=== PATIENT | female | born 1965 | race Caucasian/White ===

== ENCOUNTER 2017-06-12 11:54 | Day surgery (SDC) | payer OTHER ==
[2017-06-09 13:38] VITALS: BMI 37.2
[2017-06-12 12:19] LABS: ADD MANUAL DIFF? NO
[2017-06-12 12:20] LABS: BASO # 0.05 K/mm3 (0.0-2.0); BASO % 1.2 % (0.0-3.0); EOS # 0.1 (0.0-0.7); EOS % 2.1 % (1.5-5.0); GRAN # 1.69 (1.4-6.5); GRAN % 39.7 % (50.0-68.0); HEMATOCRIT 37.4 % (36.0-48.0); LYMPH # 2.1 (1.2-3.4); LYMPH % 50.2 % (22.0-35.0); MEAN CELL VOLUME 80.8 fL (80.0-105.0); MEAN CORPUSCULAR HEMOGLOBIN 26.8 pg (25.0-35.0); MEAN CORPUSCULAR HGB CONC 33.2 g/dl (31.0-37.0); MONO # 0.3 (0.1-0.6); MONO % 6.8 % (1.0-6.0); PLATELET COUNT 259 10^3/uL (120.0-450.0); RED CELL DISTRIBUTION WIDTH 13.6 % (11.5-14.5); WHITE BLOOD COUNT 4.3 10^3/ul (4.5-11.0)
[2017-06-12 12:30] LABS: BLOOD UREA NITROGEN 19 mg/dL (7-21); CALCIUM 9.9 mg/dL (8.4-10.5); CARBON DIOXIDE 27 mmol/L (21-33); CHLORIDE 102 mmol/L (98-107); GFR AFRICAN-AMERICAN > 60; GLUCOSE,RANDOM 97 mg/dL (70-110); POTASSIUM 4.6 mmol/L (3.6-5.0); SODIUM 139 mmol/L (132-148)
[2017-06-12 12:32] LABS: INR 0.97 (0.93-1.08); PARTIAL THROMBOPLASTIN TIME 27.8 Seconds (23.7-30.8)
--- NOTE | 2017-06-12 12:39 | CP.SDSHP ---
Same Day Surgery H & P - History Proposed Procedure: thyroid Bx. Pre-Op Diagnosis: thyroid nodule. - Previous Medical/Surgical History Cardiac: Hypertension Endocrine/Metabolic: Thyroid Disease, Diabetes, Obesity Neuro: Headaches Misc: Other (hx of .) Previous Surgical History: . - Allergies Allergies: Allergies No Known Allergies Allergy (Verified 06/09/17 13:37) - Physical Exam General Appearance: WNL. Mental Status: Alert & Oriented x3 Neuro: WNL Heart: WNL Lungs: WNL GI: WNL - {Optional Preform as Required} Other Pertinent Findings: hyperlipidemia. - Impression Impression: thyroid nodule.recent syncopal episode. - Date & Time Date: 06/12/17 Time: 12:39 Short Stay Discharge - Short Stay Discharge Admitting Diagnosis/Reason for Visit: THYROID NODULE E04.9 Disposition: HOME/ ROUTINE
[2017-06-12] MEDS ORDERED: Midazolam 2 MG/2 ML VIAL ONE ×2 (14:17→15:09)
[2017-06-12] MEDS ORDERED: Oxycodone/Acetaminophen 5/325 mg Tab PO PRN (15:23)
[2017-06-12] MEDS ORDERED: Sodium Chloride 0.45% 1,000 ML IV SCH (15:30)
[2017-06-12 15:40] VITALS: TEMP 98
[2017-06-12 15:50] VITALS: PULSE 65
[2017-06-12 16:23] VITALS: BP 116/76; RESP 20; O2SAT 96
--- NOTE | 2017-06-12 19:45 | US ---
PROCEDURE: Ultrasound-guided right thyroid fine needle aspiration biopsy. CLINICAL HISTORY: Dominant 1.6 cm right thyroid nodule. Evaluate for malignancy. PHYSICIAN(S): Stanley Carvalho M.D. TECHNIQUE: The relative risks and indications for the procedure were explained to the patient and consent obtained. The patient was placed supine on the stretcher with the neck extended and preliminary sonography of the thyroid performed. The thyroid is small and heterogeneous in echotexture, consistent with a chronic thyroiditis. There is a 1.6 cm hypoechoic nodule in the right thyroid The neck was prepped and draped in the usual sterile fashion. Conscious sedation and monitoring were provided throughout the procedure by a nurse. 1% Xylocaine was used to anesthetize the skin and soft tissues at the access site. Three passes with a 22-gauge needle were performed under ultrasound guidance for fine needle aspiration of the 1.6 cm hypoechoic nodule in the right thyroid. The slides were reviewed by pathology and deemed adequate. The patient tolerated the procedure well. IMPRESSION: 1. Ultrasound guided fine needle aspiration of a 1.6 cm hypoechoicnodule in the right thyroid.
== END 2017-06-12 17:15 | disposition home or self-care (01) ==
LOC: SDS 11:54
PROVIDERS: ATTEND Radiology Vascular & Interventional Radiology
DX: C73 Malignant neoplasm of thyroid gland (principal); I10 Essential (primary) hypertension; E11.9 Type 2 diabetes mellitus without complications; E66.9 Obesity, unspecified; R51 Headache; E78.5 Hyperlipidemia, unspecified; R55 Syncope and collapse; Z68.37 Body mass index [BMI] 37.0-37.9, adult
CPT/HCPCS: 10022; 36415; 80048; 85025; 85610; 85730; 88173; 88305; J2250; J2405; J3010; J7030; J7040

== ENCOUNTER 2018-03-09 12:30 | Observation (INO) | payer OTHER ==
[2018-03-09 12:39] VITALS: BMI 40.0
--- NOTE | 2018-03-09 13:02 | ED PDOC ---
Arrival/HPI - General Time Seen by Provider: 03/09/18 12:32 Historian: Patient - History of Present Illness Narrative History of Present Illness (Text): 03/09/18 13:01 Cortes Guevara is a 53 year old female, whose past medical history includes hypertension, who presents to the emergency department complaining of dizziness and chest pain for one hour. Patient states that she experiences associated right-sided numbness. Patient is a poor historian. No other complaints offered at this time. Time/Duration: 1 hour Symptom Onset: Gradual Symptom Course: Unchanged Activities at Onset: Light Context: Home Past Medical History - Provider Review Nursing Documentation Reviewed: Yes - Cardiac Hx Pacemaker: No - Hematological/Oncological Hx Blood Transfusions: No - Musculoskeletal/Rheumatological Hx Musculoskeletal Disorders: No - Psychiatric Hx Substance Use: No - Anesthesia Hx Anesthesia Reactions: No Hx Malignant Hyperthermia: No Family/Social History - Physician Review Nursing Documentation Reviewed: Yes Family/Social History: No Known Family HX Hx Alcohol Use: No Hx Substance Use: No Allergies/Home Meds Allergies/Adverse Reactions: Allergies Penicillins Allergy (Verified 03/09/18 13:07) SHORTNESS OF BREATH OR ITCHING? PT DOES NOT REMEMBER REACTION Home Medications: Home Meds Medication Instructions Recorded Confirmed Aspirin [Ecotrin] 81 mg PO DAILY 06/10/17 03/09/18 Atorvastatin [Lipitor] 20 mg PO DAILY 06/10/17 03/09/18 MetFORMIN [glucoPHAGE] 1,000 mg PO BID 06/10/17 03/09/18 Ramipril [Altace] 10 mg PO DAILY 06/10/17 03/09/18 Review of Systems - Physician Review All systems were reviewed & negative as marked: Yes - Review of Systems Constitutional: absent: Fevers, Night Sweats Eyes: absent: Vision Changes ENT: absent: Hearing Changes Respiratory: absent: SOB, Cough Cardiovascular: Chest Pain Gastrointestinal: absent: Abdominal Pain Genitourinary Female: absent: Dysuria, Frequency Musculoskeletal: absent: Arthralgias Skin: absent: Rash Neurological: Dizziness, Other (RIght-sided numbness) Endocrine: absent: Diaphoresis Hemo/Lymphatic: absent: Adenopathy Psychiatric: absent: Anxiety, Depression Physical Exam Vital Signs Reviewed: Yes Vital Signs Temp Pulse Resp BP Pulse Ox 03/09/18 17:10 75 18 115/74 99 03/09/18 16:11 20 03/09/18 15:26 79 18 118/69 99 03/09/18 14:03 87 18 116/68 95 03/09/18 12:38 98.1 F 90 18 130/86 100 Temperature: Afebrile Blood Pressure: Normal Pulse: Regular Respiratory Rate: Normal Appearance: Positive for: Well-Appearing, Non-Toxic, Comfortable Pain Distress: None Mental Status: Positive for: Alert and Oriented X 3 Finger Stick Blood Glucose: 109 Medical Decision Making ED Course and Treatment: 03/09/18 13:21 Impression: 53 year old female complaining of dizziness and chest pain 1 hours prior to arrival. Plan: -- EKG -- CTA Head CT -- Head CT w/o contrast -- Type and Screen -- Labs -- Meclizine and IV Fluids -- Urinalysis -- Reassess and disposition Progress Notes: EKG: Ordered, reviewed, and independently interpreted the EKG. Rate : 90 BPM Rhythm : NSR Interpretation : No ST-segment elevations or depressions, no T-wave inversions, normal intervals. Comparison : No previous EKG for comparison. 03/09/18 13:00 Code Stroke called on patient. 03/09/18 13:[address] Gonzalez, who is aware and recommends CTA. 03/09/18 14:19 Chest X-ray: Creator : Polo Kendall MD FINDINGS: LUNGS:No active pulmonary disease. PLEURA:No significant pleural effusion identified, no pneumothorax apparent. CARDIOVASCULAR:Normal. OSSEOUS STRUCTURES:No significant abnormalities. VISUALIZED UPPER ABDOMEN:Normal. OTHER FINDINGS:None. IMPRESSION: No active disease. 03/09/18 14:20 CT HEAD WITHOUT CONTRAST: Creator : Polo Kendall MD FINDINGS: HEMORRHAGE:No intracranial hemorrhage. BRAIN:No mass effect or edema. No atrophy or chronic microvascular ischemic changes. VENTRICLES:Unremarkable. No hydrocephalus. CALVARIUM:Unremarkable. PARANASAL SINUSES:Unremarkable as visualized. No significant inflammatory changes. MASTOID AIR CELLS:Unremarkable as visualized. No inflammatory changes. OTHER FINDINGS:None. IMPRESSION: No acute findings 03/09/18 15:10 CT Angiography of the neck with contrast: Creator : Polo Kendall MD IMPRESSION: Normal CT Angiography of the neck. CT Angiography of the Brain: IMPRESSION: Unremarkable CT Angiography of the Brain. 03/10/18 16:21 low nih not tpa candidate - Lab Interpretations Lab Results: 03/09/18 13:15 03/09/18 13:15 Lab Results 03/09/18 13:40: Urine Color Yellow, Urine Appearance Clear, Urine pH 6.5, Ur Specific [place] <= 1.005, Urine Protein Negative, Urine Glucose (UA) Negative, Urine Ketones Negative, Urine Blood Negative, Urine Nitrate Negative, Urine Bilirubin Negative, Urine Urobilinogen 0.2, Ur Leukocyte Esterase Negative, Urine HCG, Qual Negative 03/09/18 13:15: Hemoglobin A1c 6.1 03/09/18 13:15: Sodium 141, Potassium 4.2, Chloride 103, Carbon Dioxide 25, Anion Gap 17, BUN 18, Creatinine 0.8, Est GFR ( Amer) > 60, Est GFR (Non- Af Amer) > 60, Random Glucose 103, Calcium 10.7 H, Total Bilirubin 0.2, AST 26, ALT 34, Alkaline Phosphatase 60, Troponin I < 0.01, Total Protein 8.1, Albumin 4.7, Globulin 3.4, Albumin/Globulin Ratio 1.4, Triglycerides 209 H, Cholesterol 170, LDL Cholesterol Direct 80, HDL Cholesterol 53 03/09/18 13:15: PT 10.2, INR 0.89 L, APTT 35.9 03/09/18 13:15: WBC 4.2 L, RBC 4.67, Hgb 12.5, Hct 38.3, MCV 82.0, MCH 26.8, MCHC 32.6, RDW 12.2, Plt Count 256, MPV 9.4, Gran % 46.6 L, Lymph % (Auto) 41.8 H, [place] % (Auto) 8.4 H, Eos % (Auto) 2.2, Baso % (Auto) 1.0, Gran # 1.94, Lymph # (Auto) 1.7, [place]rell # (Auto) 0.4, Eos # (Auto) 0.1, Baso # (Auto) 0.04 I have reviewed the lab results: Yes - RAD Interpretation Radiology Orders: 03/09/18 13:00 HEAD W/O (CODE STROKE) [CT] Stat CHEST PORTABLE [RAD] Stat 03/09/18 13:04 CTA HEAD/NECK CODE STROKE [CT] Stat - Medication Orders Current Medication Orders: Aspirin (Ecotrin) 81 mg PO DAILY [facility] Last Admin: 03/10/18 09:12 Dose: 81 mg Atorvastatin Calcium (Lipitor) 20 mg PO DAILY [facility] Last Admin: 03/10/18 09:13 Dose: 20 mg Sodium Chloride (Sodium Chloride 0.9%) 1,000 mls @ 100 mls/hr IV .Q10H [facility] Last Admin: 03/10/18 03:10 Dose: 100 mls/hr eMAR Start Stop Document 03/10/18 03:10 FG (Rec: 03/10/18 03:10 FG [id number]) Intravenous Solution Start Date 03/10/18 Start Time 03:10 Levothyroxine Sodium (Synthroid) 125 mcg PO 0600 [facility] Last Admin: 03/10/18 09:12 Dose: 125 mcg Pantoprazole Sodium (Protonix Ec Tab) 40 mg PO ACB [facility] Last Admin: 03/10/18 09:12 Dose: 40 mg Ramipril (Altace) 10 mg PO DAILY [facility] Last Admin: 03/10/18 09:11 Dose: 10 mg Discontinued Medications Acetaminophen (Tylenol 325mg Tab) 650 mg PO ONCE ONE Stop: 03/09/18 22:33 Last Admin: 03/09/18 22:47 Dose: 650 mg MAR Pain/Vitals Document 03/09/18 22:47 FG (Rec: 03/09/18 22:48 FG [id number]) Pain Reassessment Is This A Pain ReAssessment? Yes Sleep Is patient sleeping during reassessment? No Presence of Pain Presence of Pain Yes Pain Scale Used Pain Scale Used Numeric Location Pain Location Body Provider Relations Representative Description Intermittent Intensity 8 Scale Used Numeric Pain Behavior Moaning Irritability Aggravating Factors Changing Position Alleviating Factors Medication Vitals Temperature (97.6 F-99.6 F) 98.1 F Temperature Source Oral Re-Assess: MAR Pain/Vitals Document 03/09/18 23:40 FG (Rec: 03/09/18 23:41 FG [id number]) Pain Reassessment Is This A Pain ReAssessment? Yes Sleep Is patient sleeping during reassessment? No Presence of Pain Presence of Pain Yes Pain Scale Used Pain Scale Used Numeric Location Pain Location Body Provider Relations Representative Description Throbbing Intensity 3 Scale Used Numeric Pain Behavior Moaning Guarding Aggravating Factors ADL's Changing Position Alleviating Factors Medication Aspirin (Aspirin) 325 mg PO STAT STA Stop: 03/09/18 14:32 Last Admin: 03/09/18 14:45 Dose: Not Given Non-Admin Reason: Patient Refused Aspirin (Aspirin Chewable) 81 mg PO DAILY [facility] Atorvastatin Calcium (Lipitor) 20 mg PO DAILY [facility] Last Admin: 03/09/18 16:08 Dose: Not Given Non-Admin Reason: Patient Refused Levothyroxine Sodium (Synthroid) 175 mcg PO 0600 [facility] Meclizine HCl (Antivert) 50 mg PO STAT STA Stop: 03/09/18 13:07 Last Admin: 03/09/18 13:42 Dose: 50 mg NIHSS Scale ([place]) Time Performed: 15:01 - How Severe is the Stoke Baseline Level of Consciousness: 0=Alert LOC to Questions: 0=Both comments correct LOC to commands: 0=Obeys both correctly Best Gaze: 0=Normal Visual: 0=No visual loss Facial: 0=Normal Motor Arm - Left: 0=No drift Motor Arm - Right: 0=No drift Motor Leg - Left: 0=No drift Motor Leg - Right: 0=No drift Limb Ataxia: 0=Absent Sensory: 0=Normal Best Language: 0=No aphasia Dysarthia: 0=Normal articulation Extinction & Inattention (Neglect): 0=Normal, no object Score: 0 Risk Level: No Stroke Risk rTPA Inclusion/Exclusion - Refusal of Treatment Patient Refused Treatment: No - Inclusion Criteria for Altepase Patient is 18 years or Older: Yes The Clinical Diagnosis of Ischemic Stroke That is Causing a Potentially Disabling Neurological Deficit: No Time of Onset is Well Established to be Less Than 270 Minute Before Treatment Would Begin: Yes Risk/Benefit Discussed With Patient/Family Member Present: No - Scribe Statement The provider has reviewed the documentation as recorded by the Scribe Kerry Joshi Provider Scribe Attestation: All medical record entries made by the Scribe were at my direction and personally dictated by me. I have reviewed the chart and agree that the record accurately reflects my personal performance of the history, physical exam, medical decision making, and the department course for this patient. I have also personally directed, reviewed, and agree with the discharge instructions and disposition. Disposition/Present on Arrival - Present on Arrival Any Indicators Present on Arrival: No - Disposition Have Diagnosis and Disposition been Completed?: Yes Diagnosis: Numbness, Chest pain Disposition: HOSPITALIZED Disposition Time: 12:00 Patient Problems: Current Active Problems Problem Status Onset Dizziness Acute History of papillary adenocarcinoma of thyroid Acute Diabetes mellitus type 2 in obese Chronic HLD (hyperlipidemia) Chronic HTN (hypertension) Chronic Numbness Chronic Condition: STABLE
--- NOTE | 2018-03-09 13:23 | CT ---
PROCEDURE: CT HEAD WITHOUT CONTRAST. HISTORY: Code Stroke COMPARISON: None available. TECHNIQUE: Axial computed tomography images were obtained through the head/brain without intravenous contrast. Radiation dose: Total exam DLP = 846 mGy-cm. This CT exam was performed using one or more of the following dose reduction techniques: Automated exposure control, adjustment of the mA and/or kV according to patient size, and/or use of iterative reconstruction technique. FINDINGS: HEMORRHAGE: No intracranial hemorrhage. BRAIN: No mass effect or edema. No atrophy or chronic microvascular ischemic changes. VENTRICLES: Unremarkable. No hydrocephalus. CALVARIUM: Unremarkable. PARANASAL SINUSES: Unremarkable as visualized. No significant inflammatory changes. MASTOID AIR CELLS: Unremarkable as visualized. No inflammatory changes. OTHER FINDINGS: None. IMPRESSION: No acute findings
[2018-03-09 13:32] LABS: BASO # 0.04 K/mm3 (0.0-2.0); EOS # 0.1 (0.0-0.7); EOS % 2.2 % (1.5-5.0); GRAN # 1.94 (1.4-6.5); GRAN % 46.6 % (50.0-68.0); HEMOGLOBIN 12.5 g/dL (12.0-16.0); LYMPH # 1.7 (1.2-3.4); LYMPH % 41.8 % (22.0-35.0); MEAN CORPUSCULAR HEMOGLOBIN 26.8 pg (25.0-35.0); MEAN CORPUSCULAR HGB CONC 32.6 g/dl (31.0-37.0); MEAN PLATELET VOLUME 9.4 fl (7.0-11.0); MONO # 0.4 (0.1-0.6); MONO % 8.4 % (1.0-6.0); RBC 4.67 10^6/uL (3.5-6.1); RED CELL DISTRIBUTION WIDTH 12.2 % (11.5-14.5); WHITE BLOOD COUNT 4.2 10^3/ul (4.5-11.0)
[2018-03-09] MEDS: Sodium Chloride 0.9% 1,000 ML IV SCH (13:38)
[2018-03-09 13:39] LABS: ALB/GLOB RATIO 1.4 (1.1-1.8); ALBUMIN 4.7 g/dL (3.0-4.8); ALT/SGPT 34 U/L (7-56); AST/SGOT 26 U/L (14-36); BLOOD UREA NITROGEN 18 mg/dL (7-21); CALCIUM 10.7 mg/dL (8.4-10.5); GFR AFRICAN-AMERICAN > 60; GFR NON-AFRICAN AMERICAN > 60; HDL CHOLESTEROL 53 mg/dL (29-60)
[2018-03-09 13:40] LABS: PROTHROMBIN TIME 10.2 SECONDS (9.4-12.5)
[2018-03-09 13:41] LABS: INR 0.89 (0.93-1.08); PARTIAL THROMBOPLASTIN TIME 35.9 Seconds (25.1-36.5)
[2018-03-09 13:51] LABS: LDL CHOLESTEROL 80 mg/dL (0-129)
[2018-03-09 13:54] LABS: TROPONIN I < 0.01 ng/mL
[2018-03-09 14:00] LABS: PH,URINE 6.5 (4.7-8.0); URINE BILIRUBIN NEGATIVE (NEGATIVE); URINE BLOOD NEGATIVE (NEGATIVE); URINE GLUCOSE (UA) NEGATIVE (NEGATIVE); URINE LEUKOCYTE ESTERASE NEGATIVE Leu/uL (NEGATIVE); URINE PROTEIN NEGATIVE mg/dL (<30 mg/dL); URINE UROBILINOGEN 0.2 E.U./dL (<1 E.U./dL)
[2018-03-09 14:01] LABS: URINE APPEARANCE CLEAR (CLEAR); URINE COLOR YELLOW (YELLOW)
[2018-03-09 14:03] LABS: HCG,QUALITATIVE URINE NEGATIVE (NEGATIVE)
--- NOTE | 2018-03-09 14:06 | RAD ---
HISTORY: Code Stroke COMPARISON: No prior. FINDINGS: LUNGS: No active pulmonary disease. PLEURA: No significant pleural effusion identified, no pneumothorax apparent. CARDIOVASCULAR: Normal. OSSEOUS STRUCTURES: No significant abnormalities. VISUALIZED UPPER ABDOMEN: Normal. OTHER FINDINGS: None. IMPRESSION: No active disease.
--- NOTE | 2018-03-09 14:23 | CT ---
PROCEDURE: CT Angiography of the neck with contrast HISTORY: code stroke COMPARISON: None available. TECHNIQUE: Contiguous axial images of the neck were obtained from the level of the skull-base to the superior mediastinum in the arteriographic phase of enhancement. Coronal and sagittal reformats or also generated. IV contrast dose: 150 cc of Omni 350 Radiation Dose - DLP: 511 mGy-cm This CT exam was performed using one or more of the following dose reduction techniques: Automated exposure control, adjustment of the mA and/or kV according to patient size, and/or use of iterative reconstruction technique. FINDINGS: RIGHT CAROTID ARTERIES: Common Carotid Artery: Normal. Carotid Bifurcation: Normal. Internal Carotid Artery:Normal. External Carotid Artery (proximal branches): Normal. LEFT CAROTID ARTERIES: Common Carotid Artery: Normal. Carotid Bifurcation: Normal. Internal Carotid Artery:Normal. External Carotid Artery (proximal branches): Normal. VERTEBRAL ARTERIES: Right Vertebral Artery: Normal. Left Vertebral Artery: Normal. OTHER FINDINGS: None. IMPRESSION: Normal CT Angiography of the neck. CT Angiography of the Brain. HISTORY: code stroke COMPARISON: None available. TECHNIQUE: CT angiography of the intracranial arteries was performed. Coronal and sagittal maximum intensity projection reformated images were generated. This CT exam was performed using one or more of the following dose reduction techniques: Automated exposure control, adjustment of the mA and/or kV according to patient size, and/or use of iterative reconstruction technique. FINDINGS: INTERNAL CEREBRAL ARTERIES: Unremarkable. The skull base, petrous, cavernous and supraclinoid segments are bilaterally widely patent. ANTERIOR CEREBRAL ARTERIES: Unremarkable. A1 and A2 segments are widely patent. Smaller distal branches unremarkable, as visualized. MIDDLE CEREBRAL ARTERIES: Unremarkable. M1 and M2 segments are widely patent. Perisylvian branches grossly symmetric. POSTERIOR CIRCULATION: Basilar Artery: Unremarkable. Distal Vertebral Arteries: Unremarkable. Posterior Cerebral Arteries: Unremarkable. Posterior Inferior Cerebellar Arteries: Unremarkable. ANEURYSM/ VASCULAR MALFORMATIONS: None. OTHER FINDINGS: None. IMPRESSION: Unremarkable CT Angiography of the Brain.
--- NOTE | 2018-03-09 15:58 | CP.PCM.HP ---
<Corky Blanco - Last Filed: 03/09/18 16:17> History of Present Illness - History of Present Illness History of Present Illness: CC: Dizziness HPI: Patient is a 53 year old female with past medical history of DM2, HTN, HLD , and hx of papillary thyroid cancer s/p thyroidectomy who presented to [facility] complaining of dizziness while at home. Patient indicated she was at home sitting on couch watching television when suddenly she felt dizzy and fell over on her side of the couch. The patient reports that she had some shaking of her body/arms, loss of bowel (urination), biting of her tongue and some confusion. Patient reported episode lasted a few moments. When she regained counsciousness she reported left sided facial numbness, perioral facial numbness, increased bilateral upper extremity and lower extremity numbness. Patient reported that at baseline she has chronic numbness of her upper extremities. Patient reports previous episode similar to this roughly a year ago, for which with further investigation most likely was due to hypoglycemia. Patient indicates leading up to presenting symptoms she had felt well, no sick contacts, appropriate sleep. Patient reported improved symptoms during interview. Patient also expressed chest pressure sensation at onset of symptoms and following initial incident. She denies radiation of her pain or trouble breathing, nausea, vomiting, sweats. In ED code stroke was called for her symptoms. Patient had EKG showing NSR without ST elevation/depression, Head CT with negative acute findings, Head and Neck CTA noted to be unremarkable, electrolytes were stable and VSS. Neurology was notified of patient and is aware of case. Nursing preformed bedside swallow with passing score. PMH: As above PSH: Thyroidectomy 06/2017, C section x2, Appendectomy, Lipoma bx SOCHX: Tobacco: Denies, ETOH: Denies, ID: Denies ALL: PCN Meds: TONY Reviewed PMD: Dr. Deepthi Ni Heme/Onc: Dr. Patsy Plascencia Present on Admission - Present on Admission Any Indicators Present on Admission: No Review of Systems - Constitutional Constitutional: Headache. absent: Chills, Night Sweats, Snoring, Weight Loss - EENT Eyes: absent: Blind Spots, Change in Vision Ears: absent: Decreased Hearing Nose/Mouth/Throat: absent: Nasal Discharge - Cardiovascular Cardiovascular: Chest Pain, Syncope. absent: Dyspnea - Respiratory Respiratory: absent: Cough, Hemoptysis - Gastrointestinal Gastrointestinal: absent: Abdominal Pain, Diarrhea, Nausea - Genitourinary Genitourinary: absent: Dysuria, Hematuria, Pyuria - Musculoskeletal Musculoskeletal: Numbness. absent: Arthralgias - Integumentary Integumentary: absent: Pruritus, Rash - Neurological Neurological: Confusion, Disequilibrium, Dizziness, Numbness - Psychiatric Psychiatric: absent: Anxiety - Hematologic/Lymphatic Hematologic: absent: Easy Bleeding, Easy Bruising Past Patient History - Past Social History Smoking Status: Never Smoked - CARDIAC Hx Pacemaker: No - ENDOCRINE/METABOLIC Hx Diabetes Mellitus Type 2: Yes Other/Comment: thyroid cancer - HEMATOLOGICAL/ONCOLOGICAL Hx Blood Transfusions: No - MUSCULOSKELETAL/RHEUMATOLOGICAL Hx Musculoskeletal Disorders: No - PSYCHIATRIC Hx Substance Use: No - SURGICAL HISTORY Hx Surgeries: Yes Other/Comment: thyroid removal - ANESTHESIA Hx Anesthesia Reactions: No Hx Malignant Hyperthermia: No Meds Allergies/Adverse Reactions: Allergies Allergy/AdvReac Type Severity Reaction Status Date / Time Penicillins Allergy SHORTNESS Verified 03/09/18 13:07 OF BREATH OR ITCHING? Physical Exam - Constitutional Appears: Non-toxic, No Acute Distress - Head Exam Head Exam: ATRAUMATIC, NORMAL INSPECTION, NORMOCEPHALIC - Eye Exam Eye Exam: EOMI, PERRL - Neck Exam Neck exam: Positive for: Full Rom - Respiratory Exam Respiratory Exam: Clear to Auscultation Bilateral, NORMAL BREATHING PATTERN. absent: Rhonchi, Wheezes - Cardiovascular Exam Cardiovascular Exam: REGULAR RHYTHM, +S1, +S2 - GI/Abdominal Exam GI & Abdominal Exam: Normal Bowel Sounds, Soft. absent: Tenderness - Extremities Exam Extremities exam: Positive for: normal inspection. Negative for: calf tenderness, tenderness, pedal pulses present - Neurological Exam Neurological exam: Alert, CN II-XII Intact, Oriented x3, Reflexes Normal Additional comments: NO facial symmetry appreciated Dullness to palpation upper extremitites b/l medial to ulnar nerve distribution Able to move all four extremities past midline - Psychiatric Exam Psychiatric exam: Normal Affect, Normal Mood - Skin Skin Exam: Dry, Warm Additional comments: Lipoma appreciated on left upper extremity, bilateral anterior thighs, posterior back Results - Vital Signs Recent Vital Signs: Last Vital Signs Temp 98.1 F 03/09/18 12:38 Pulse 79 03/09/18 15:26 Resp 18 03/09/18 15:26 BP 118/69 03/09/18 15:26 Pulse Ox 99 03/09/18 15:26 - Labs Result Diagrams: 03/09/18 13:15 03/09/18 13:15 Labs: Laboratory Results - last 24 hr 03/09/18 03/09/18 03/09/18 13:15 13:15 13:15 WBC 4.2 L RBC 4.67 Hgb 12.5 Hct 38.3 MCV 82.0 MCH 26.8 MCHC 32.6 RDW 12.2 Plt Count 256 MPV 9.4 Gran % 46.6 L Lymph % (Auto) 41.8 H [place] % (Auto) 8.4 H Eos % (Auto) 2.2 Baso % (Auto) 1.0 Gran # 1.94 Lymph # (Auto) 1.7 [place] # (Auto) 0.4 Eos # (Auto) 0.1 Baso # (Auto) 0.04 PT 10.2 INR 0.89 L APTT 35.9 Sodium 141 Potassium 4.2 Chloride 103 Carbon Dioxide 25 Anion Gap 17 BUN 18 Creatinine 0.8 Est GFR ( Amer) > 60 Est GFR (Non-Af Amer) > 60 Random Glucose 103 Hemoglobin A1c Calcium 10.7 H Total Bilirubin 0.2 AST 26 ALT 34 Alkaline Phosphatase 60 Troponin I < 0.01 Total Protein 8.1 Albumin 4.7 Globulin 3.4 Albumin/Globulin Ratio 1.4 Triglycerides 209 H Cholesterol 170 LDL Cholesterol Direct 80 HDL Cholesterol 53 Urine Color Urine Appearance Urine pH Ur Specific [place] Urine Protein Urine Glucose (UA) Urine Ketones Urine Blood Urine Nitrate Urine Bilirubin Urine Urobilinogen Ur Leukocyte Esterase Urine HCG, Qual 03/09/18 03/09/18 13:15 13:40 WBC RBC Hgb Hct MCV MCH MCHC RDW Plt Count MPV Gran % Lymph % (Auto) [place] % (Auto) Eos % (Auto) Baso % (Auto) Gran # Lymph # (Auto) [place] # (Auto) Eos # (Auto) Baso # (Auto) PT INR APTT Sodium Potassium Chloride Carbon Dioxide Anion Gap BUN Creatinine Est GFR ( Amer) Est GFR (Non-Af Amer) Random Glucose Hemoglobin A1c 6.1 Calcium Total Bilirubin AST ALT Alkaline Phosphatase Troponin I Total Protein Albumin Globulin Albumin/Globulin Ratio Triglycerides Cholesterol LDL Cholesterol Direct HDL Cholesterol Urine Color Yellow Urine Appearance Clear Urine pH 6.5 Ur Specific [place] <= 1.005 Urine Protein Negative Urine Glucose (UA) Negative Urine Ketones Negative Urine Blood Negative Urine Nitrate Negative Urine Bilirubin Negative Urine Urobilinogen 0.2 Ur Leukocyte Esterase Negative Urine HCG, Qual Negative Assessment & Plan - Assessment and Plan (Free Text) Assessment: 53 year old female with past medical history of DM2, HTN, HLD, and hx of papillary thyroid cancer s/p thyroidectomy who presented to [facility] complaining of dizziness while at home. Patient with possible syncope vs. seizure activity story. Head CT, Head and Neck CTA both negative for acute findings. Patient to be admitted for evaluation and for neurology consultation and chest pain work up. Plan: TIA Details: - Patient story depicting seizure vs. TIA vs. pre/syncopal episode - Head CT and Head and Neck CTA negative for acute findings - Patient with diminishment of her presenting symptoms during exam - Bedside swallow pass Plan: - Neurology consulted, f/u recs - Echocardiogram - EEG - PT eval Chest pain Details: - Initial EKG showing NSR, no ST elevations/depressions - Initial trop negative Plan: - Trops x 2 - Echocardiogram DM2 - ISS - ACHS Papillary thyroid cancer s/p thyroidectomy - Continue home levothyroxine dose - TSH, T4 HTN - Continue home BP meds - Stable at this time HLD - Continue home lipitor 20mg DVT ppx: SCD GI ppx: Pepcid Case and Plan discussed with attending - Date & Time Date: 03/09/18 Time: 16:05 <Naima Dumont - Last Filed: 03/09/18 16:42> Results - Vital Signs Recent Vital Signs: Last Vital Signs Temp 98.1 F 03/09/18 12:38 Pulse 79 03/09/18 15:26 Resp 20 03/09/18 16:11 BP 118/69 03/09/18 15:26 Pulse Ox 99 03/09/18 15:26 - Labs Result Diagrams: 03/09/18 13:15 03/09/18 13:15 Labs: Laboratory Results - last 24 hr 03/09/18 15:00 BBK History Checked No verified bt Attending/Attestation - Attestation I have personally seen and examined this patient.: Yes I have fully participated in the care of the patient.: Yes I have reviewed all pertinent clinical information: Yes Notes (Text): 03/09/18 16:39 53 year old female with past medical history of hypertension, diabetes, dyslipidemia and papillary thyroid cancer s/p thyroidectomy who presented with complaint of chest pain and possible syncopal vs seizure episode at home. Also complained of numbness in upper extremities. CT head and CTA head/neck are negative for acute findings. Neurology and PT evaluation are requested. Will obtain serial cardiac enzymes and echocardiogram. Will obtain EEG as well. Continue with aspirin and statin. Naima Dumont MD Hospitalist.
--- NOTE | 2018-03-09 16:42 | CARD ---
APPROVED REPORT EKG Measurement Heart [id number] [place] [id number] <Conclusion> Normal sinus rhythm Normal ECG
[2018-03-10] MEDS: Sodium Chloride 0.9% 1,000 ML IV SCH (03:10)
[2018-03-10] MEDS ORDERED: Levothyroxine 88 MCG TAB PO SCH (06:00)
[2018-03-10 06:27] LABS: BASO # 0.03 K/mm3 (0.0-2.0); BASO % 0.8 % (0.0-3.0); EOS # 0.2 (0.0-0.7); EOS % 4.4 % (1.5-5.0); GRAN # 1.04 (1.4-6.5); HEMOGLOBIN 11.6 g/dL (12.0-16.0); LYMPH # 2.1 (1.2-3.4); LYMPH % 57.2 % (22.0-35.0); MEAN CELL VOLUME 82.9 fl (80.0-105.0); MEAN CORPUSCULAR HEMOGLOBIN 26.1 pg (25.0-35.0); MEAN CORPUSCULAR HGB CONC 31.5 g/dl (31.0-37.0); MEAN PLATELET VOLUME 9.2 fl (7.0-11.0); MONO # 0.3 (0.1-0.6); MONO % 8.6 % (1.0-6.0); RBC 4.44 10^6/uL (3.5-6.1); RED CELL DISTRIBUTION WIDTH 12.5 % (11.5-14.5); WHITE BLOOD COUNT 3.6 10^3/ul (4.5-11.0)
[2018-03-10 06:42] LABS: ALB/GLOB RATIO 1.3 (1.1-1.8); ALBUMIN 3.9 g/dL (3.0-4.8); ALT/SGPT 28 U/L (7-56); AST/SGOT 34 U/L (14-36); BLOOD UREA NITROGEN 17 mg/dL (7-21); CALCIUM 9.4 mg/dL (8.4-10.5); GFR AFRICAN-AMERICAN > 60; GFR NON-AFRICAN AMERICAN > 60
[2018-03-10] MEDS ORDERED: Levothyroxine 175 MCG TAB PO SCH (07:28)
[2018-03-10] MEDS ORDERED: Pantoprazole 40 mg EC Tab PO SCH (07:30)
[2018-03-10 08:11] LABS: FREE T4 1.59 ng/dL (0.78-2.19)
[2018-03-10] MEDS ORDERED: Levothyroxine 125 MCG TAB PO SCH (08:15)
--- NOTE | 2018-03-10 08:39 | CP.PCM.CON ---
<Edelmira Foss - Last Filed: 03/10/18 08:51> History of Present Illness - History of Present Illness History of Present Illness: Neurology Consult Note - Dr. Gonzalez CC: Dizziness/syncope HPI: 53 [place] F with a PMHx of IDDM, diabetic neuropathy, HTN, HLD, and hx of papillary thyroid cancer s/p thyroidectomy that presented to [facility] with complaints of dizziness, numbness and syncopal episode. Pt stated that she was at home alone yesterday and suddenly felt dizzy, headache localized to the posterior of her head and weak, she was aware that she was falling towards the floor from her sofa and then lost consciousness for a moments and regained consciousness within a minute. Pt denied loss of bladder control or rhythmic shaking of her extremities, however admitted to biting her tongue as a result of the fall. Pt has a hx of syncope/nearsyncopal episodes, most recent of which occurred at [facility] Sep 2017. Pt noted associated symptoms of left facial numbness, perioral numbness which was new, she has left hand numbness at baseline x multiple years. Pt was seen and examined at bedside. Pt has mild complaints of posterior headache, which has persisted since onset of symptoms. Pt admits to improved sensation both of her face and extremities. Pt is tolerating oral intake and moving bowels and bladder regularly. No acute or adverse events overnight, as per nursing staff. Pt denied fever, chills, sob, chest pains, abdominal pains, nausea, vomiting, diarrhea, constipation or dysuria. PMHx: As above PSHx: Thyroidectomy 06/2017, C section x2, Appendectomy, Lipoma bx SHX: Tobacco: Denies, ETOH: Denies, ID: Denies Meds: MAR Reviewed Allergies: PCN Review of Systems - Review of Systems Review of Systems: as per HPI otherwise negative Past Patient History - Past Social History Smoking Status: Never Smoked - CARDIAC Hx Pacemaker: No - PULMONARY Hx Respiratory Disorders: No - NEUROLOGICAL Hx Neurological Disorder: No - HEENT Hx HEENT Problems: No - RENAL Hx Chronic Kidney Disease: No - ENDOCRINE/METABOLIC Hx Diabetes Mellitus Type 2: Yes Other/Comment: thyroid cancer - HEMATOLOGICAL/ONCOLOGICAL Hx Blood Transfusions: No - INTEGUMENTARY Hx Dermatological Problems: No - MUSCULOSKELETAL/RHEUMATOLOGICAL Hx Musculoskeletal Disorders: No - GASTROINTESTINAL Hx Gastrointestinal Disorders: No - GENITOURINARY/GYNECOLOGICAL Hx Genitourinary Disorders: No - PSYCHIATRIC Hx Substance Use: No - SURGICAL HISTORY Hx Surgeries: Yes Other/Comment: thyroid removal - ANESTHESIA Hx Anesthesia Reactions: No Hx Malignant Hyperthermia: No Meds Allergies/Adverse Reactions: Allergies Allergy/AdvReac Type Severity Reaction Status Date / Time Penicillins Allergy SHORTNESS Verified 03/09/18 13:07 OF BREATH OR ITCHING? - Medications Medications: Current Medications Aspirin (Ecotrin) 81 mg PO DAILY [facility] Atorvastatin Calcium (Lipitor) 20 mg PO DAILY [facility] Sodium Chloride (Sodium Chloride 0.9%) 1,000 mls @ 100 mls/hr IV .Q10H [facility] Last Admin: 03/10/18 03:10 Dose: 100 mls/hr Levothyroxine Sodium (Synthroid) 125 mcg PO 0600 [facility] Pantoprazole Sodium (Protonix Ec Tab) 40 mg PO ACB [facility] Ramipril (Altace) 10 mg PO DAILY [facility] Physical Exam - Constitutional Appears: No Acute Distress - Head Exam Head Exam: ATRAUMATIC, NORMAL INSPECTION, NORMOCEPHALIC - Eye Exam Eye Exam: EOMI, Normal appearance, PERRL Pupil Exam: NORMAL ACCOMODATION, PERRL - ENT Exam ENT Exam: Mucous Membranes Moist, Normal Exam - Neck Exam Neck exam: Positive for: Normal Inspection - Respiratory Exam Respiratory Exam: Clear to Auscultation Bilateral, NORMAL BREATHING PATTERN - Cardiovascular Exam Cardiovascular Exam: REGULAR RHYTHM, +S1, +S2 - GI/Abdominal Exam GI & Abdominal Exam: Normal Bowel Sounds, Soft. absent: Tenderness - Neurological Exam Neurological exam: Alert, CN II-XII Intact, Oriented x3, Reflexes Normal - Expanded Neurological Exam Expanded Patient oriented to: person, place, time Cranial nerves: EOM's Intact: Normal, Facial Palsey w/Forehead Movement: Normal , Facial Palsey w/o Forehead Movement: Normal, Facial Sensation: Abnormal Left, Gag Reflex: Normal, Nystagmus: Normal, Tongue Deviation: Normal Cerebellar Function: Finger to Nose: Normal, Heel to Doyle: Normal, Romberg: Normal Upper motor neuron: Babinski Sign: Normal, Liang Neglect: Normal, Pronator Drift : Normal, Sensory Extinction: Normal Sensory exam: Upper Extremity Light Touch: Abnormal Left Neuro motor strength exam: Left Upper Extremity: 4, Right Upper Extremity: 4, Left Lower Extremity: 4, Right Lower Extremity: 4 DTR: Achilles Tendon Left: 2+, Achilles Tendon Right: 2+, Bicep Left: 2+, Bicep Right: 2+, Brachioradialis Left: 2+, Brachioradialis Right: 2+, Patellar Left: 2 +, Patellar Right: 2+ Coma Scale Eye Opening: SPONTANEOUS Coma Scale Motor Response: OBEYS COMMANDS Coma Scale Verbal: Oriented Coma Scale Total: 15 - Psychiatric Exam Psychiatric exam: Normal Affect, Normal Mood - Skin Skin Exam: Dry, Intact, Normal Color, Warm Results - Vital Signs Recent Vital Signs: Last Vital Signs Temp 97.8 F 03/10/18 06:00 Pulse 72 03/10/18 06:00 Resp 18 03/10/18 06:00 BP 100/63 03/10/18 06:00 Pulse Ox 96 03/10/18 06:00 - Labs Result Diagrams: 03/10/18 05:40 03/10/18 05:40 Labs: Laboratory Results - last 24 hr 03/09/18 03/09/18 03/09/18 15:00 17:00 19:20 WBC RBC Hgb Hct MCV MCH MCHC RDW Plt Count MPV Gran % Lymph % (Auto) [place] % (Auto) Eos % (Auto) Baso % (Auto) Gran # Lymph # (Auto) [place] # (Auto) Eos # (Auto) Baso # (Auto) Sodium Potassium Chloride Carbon Dioxide Anion Gap BUN Creatinine Est GFR ( Amer) Est GFR (Non-Af Amer) POC Glucose (mg/dL) Random Glucose Calcium Total Bilirubin AST ALT Alkaline Phosphatase Troponin I Total Protein Albumin Globulin Albumin/Globulin Ratio Free T4 TSH 3rd Generation 0.03 L Blood Type A POSITIVE Blood Type Confirm A POSITIVE Antibody Screen Negative BBK History Checked No verified bt 03/09/18 03/09/18 03/10/18 19:20 21:44 01:05 WBC RBC Hgb Hct MCV MCH MCHC RDW Plt Count MPV Gran % Lymph % (Auto) [place] % (Auto) Eos % (Auto) Baso % (Auto) Gran # Lymph # (Auto) [place] # (Auto) Eos # (Auto) Baso # (Auto) Sodium Potassium Chloride Carbon Dioxide Anion Gap BUN Creatinine Est GFR ( Amer) Est GFR (Non-Af Amer) POC Glucose (mg/dL) 96 Random Glucose Calcium Total Bilirubin AST ALT Alkaline Phosphatase Troponin I < 0.01 < 0.01 Total Protein Albumin Globulin Albumin/Globulin Ratio Free T4 TSH 3rd Generation Blood Type Blood Type Confirm Antibody Screen BBK History Checked 03/10/18 03/10/18 03/10/18 05:40 05:40 06:30 WBC 3.6 L RBC 4.44 Hgb 11.6 L Hct 36.8 MCV 82.9 MCH 26.1 MCHC 31.5 RDW 12.5 Plt Count 252 MPV 9.2 Gran % 29.0 L Lymph % (Auto) 57.2 H [place] % (Auto) 8.6 H Eos % (Auto) 4.4 Baso % (Auto) 0.8 Gran # 1.04 L Lymph # (Auto) 2.1 [place] # (Auto) 0.3 Eos # (Auto) 0.2 Baso # (Auto) 0.03 Sodium 143 Potassium 4.3 Chloride 105 Carbon Dioxide 28 Anion Gap 14 BUN 17 Creatinine 0.8 Est GFR ( Amer) > 60 Est GFR (Non-Af Amer) > 60 POC Glucose (mg/dL) Random Glucose 101 Calcium 9.4 Total Bilirubin 0.2 AST 34 ALT 28 Alkaline Phosphatase 42 Troponin I Total Protein 6.8 Albumin 3.9 Globulin 2.9 Albumin/Globulin Ratio 1.3 Free T4 1.59 TSH 3rd Generation 0.07 L Blood Type Blood Type Confirm Antibody Screen BBK History Checked 03/10/18 07:28 WBC RBC Hgb Hct MCV MCH MCHC RDW Plt Count MPV Gran % Lymph % (Auto) [place] % (Auto) Eos % (Auto) Baso % (Auto) Gran # Lymph # (Auto) [place] # (Auto) Eos # (Auto) Baso # (Auto) Sodium Potassium Chloride Carbon Dioxide Anion Gap BUN Creatinine Est GFR ( Amer) Est GFR (Non-Af Amer) POC Glucose (mg/dL) 104 Random Glucose Calcium Total Bilirubin AST ALT Alkaline Phosphatase Troponin I Total Protein Albumin Globulin Albumin/Globulin Ratio Free T4 TSH 3rd Generation Blood Type Blood Type Confirm Antibody Screen BBK History Checked Assessment & Plan - Assessment and Plan (Free Text) Assessment: 53 [place] F with a PMHx of IDDM, diabetic neuropathy, HTN, HLD, and hx of papillary thyroid cancer s/p thyroidectomy that presented to [facility] with complaints of dizziness, numbness and syncopal episode. Pt chest pain has resolved, trops negative x3. Pt vital signs have remained stable, EKG unremarkale, CTH did not demonstrate any acute intracranial pathology nor did the CTA of head and neck. Will follow up with EEG and Echocardiogram. We will also obtain a noncontrast MRI of brain for further assessment. Continue medical management with asa, lipitor, synthroid, and anti-htn. BP and bg control. PT/ OT. <Froilan Gonzalez - Last Filed: 03/10/18 13:38> Meds - Medications Medications: Current Medications Aspirin (Ecotrin) 81 mg PO DAILY [facility] Last Admin: 03/10/18 09:12 Dose: 81 mg Atorvastatin Calcium (Lipitor) 20 mg PO DAILY [facility] Last Admin: 03/10/18 09:13 Dose: 20 mg Sodium Chloride (Sodium Chloride 0.9%) 1,000 mls @ 100 mls/hr IV .Q10H [facility] Last Admin: 03/10/18 03:10 Dose: 100 mls/hr Levothyroxine Sodium (Synthroid) 125 mcg PO 0600 [facility] Last Admin: 03/10/18 09:12 Dose: 125 mcg Pantoprazole Sodium (Protonix Ec Tab) 40 mg PO ACB [facility] Last Admin: 03/10/18 09:12 Dose: 40 mg Ramipril (Altace) 10 mg PO DAILY [facility] Last Admin: 03/10/18 09:11 Dose: 10 mg Results - Vital Signs Recent Vital Signs: Last Vital Signs Temp 98.4 F 03/10/18 12:00 Pulse 71 03/10/18 12:00 Resp 20 03/10/18 12:00 BP 100/61 03/10/18 12:00 Pulse Ox 96 03/10/18 06:00 - Labs Result Diagrams: 03/10/18 05:40 03/10/18 05:40 Labs: Laboratory Results - last 24 hr 03/09/18 03/09/18 03/09/18 15:00 17:00 19:20 WBC RBC Hgb Hct MCV MCH MCHC RDW Plt Count MPV Gran % Lymph % (Auto) [place] % (Auto) Eos % (Auto) Baso % (Auto) Gran # Lymph # (Auto) [place] # (Auto) Eos # (Auto) Baso # (Auto) Sodium Potassium Chloride Carbon Dioxide Anion Gap BUN Creatinine Est GFR ( Amer) Est GFR (Non-Af Amer) POC Glucose (mg/dL) Random Glucose Calcium Total Bilirubin AST ALT Alkaline Phosphatase Troponin I Total Protein Albumin Globulin Albumin/Globulin Ratio Free T4 TSH 3rd Generation 0.03 L Blood Type A POSITIVE Blood Type Confirm A POSITIVE Antibody Screen Negative BBK History Checked No verified bt 03/09/18 03/09/18 03/10/18 19:20 21:44 01:05 WBC RBC Hgb Hct MCV MCH MCHC RDW Plt Count MPV Gran % Lymph % (Auto) [place] % (Auto) Eos % (Auto) Baso % (Auto) Gran # Lymph # (Auto) [place] # (Auto) Eos # (Auto) Baso # (Auto) Sodium Potassium Chloride Carbon Dioxide Anion Gap BUN Creatinine Est GFR ( Amer) Est GFR (Non-Af Amer) POC Glucose (mg/dL) 96 Random Glucose Calcium Total Bilirubin AST ALT Alkaline Phosphatase Troponin I < 0.01 < 0.01 Total Protein Albumin Globulin Albumin/Globulin Ratio Free T4 TSH 3rd Generation Blood Type Blood Type Confirm Antibody Screen BBK History Checked 03/10/18 03/10/18 03/10/18 05:40 05:40 06:30 WBC 3.6 L RBC 4.44 Hgb 11.6 L Hct 36.8 MCV 82.9 MCH 26.1 MCHC 31.5 RDW 12.5 Plt Count 252 MPV 9.2 Gran % 29.0 L Lymph % (Auto) 57.2 H [place] % (Auto) 8.6 H Eos % (Auto) 4.4 Baso % (Auto) 0.8 Gran # 1.04 L Lymph # (Auto) 2.1 [place] # (Auto) 0.3 Eos # (Auto) 0.2 Baso # (Auto) 0.03 Sodium 143 Potassium 4.3 Chloride 105 Carbon Dioxide 28 Anion Gap 14 BUN 17 Creatinine 0.8 Est GFR ( Amer) > 60 Est GFR (Non-Af Amer) > 60 POC Glucose (mg/dL) Random Glucose 101 Calcium 9.4 Total Bilirubin 0.2 AST 34 ALT 28 Alkaline Phosphatase 42 Troponin I Total Protein 6.8 Albumin 3.9 Globulin 2.9 Albumin/Globulin Ratio 1.3 Free T4 1.59 TSH 3rd Generation 0.07 L Blood Type Blood Type Confirm Antibody Screen BBK History Checked 03/10/18 03/10/18 07:28 11:40 WBC RBC Hgb Hct MCV MCH MCHC RDW Plt Count MPV Gran % Lymph % (Auto) [place] % (Auto) Eos % (Auto) Baso % (Auto) Gran # Lymph # (Auto) [place] # (Auto) Eos # (Auto) Baso # (Auto) Sodium Potassium Chloride Carbon Dioxide Anion Gap BUN Creatinine Est GFR ( Amer) Est GFR (Non-Af Amer) POC Glucose (mg/dL) 104 153 H Random Glucose Calcium Total Bilirubin AST ALT Alkaline Phosphatase Troponin I Total Protein Albumin Globulin Albumin/Globulin Ratio Free T4 TSH 3rd Generation Blood Type Blood Type Confirm Antibody Screen BBK History Checked Assessment & Plan - Assessment and Plan (Free Text) Assessment: MRI of the brain did not show any acute infarct or other abnormalities. The patient did not have a stroke. We will continue work-up for other neurological causes for her symptoms and follow up on the EEG results. Otherwise, the symptoms may have been cardiac in origin. Attending/Attestation - Attestation I have personally seen and examined this patient.: Yes I have fully participated in the care of the patient.: Yes I have reviewed all pertinent clinical information: Yes
--- NOTE | 2018-03-10 10:34 | MRI ---
PROCEDURE: MRI BRAIN WITHOUT CONTRAST HISTORY: cva COMPARISON: None. TECHNIQUE: Multiplanar, multisequence MR images of the brain were obtained without intravenous contrast enhancement. FINDINGS: HEMORRHAGE: None DWI: No evidence of an acute or early subacute infarction. BRAIN PARENCHYMA: No mass effect or edema. No atrophy or chronic microvascular ischemic changes. VENTRICLES: Unremarkable. No hydrocephalus. CRANIUM: Unremarkable. ORBITS: Grossly unremarkable. PARANASAL SINUSES/MASTOIDS: Clear VASCULAR SYSTEM: Skull base flow voids intact. OTHER FINDINGS: None. IMPRESSION: No acute intracranial findings. No evidence of acute infarct
[2018-03-10 12:28] VITALS: BP 100/61; RESP 20; TEMP 98.4
--- NOTE | 2018-03-10 15:22 | CP.PCM.DIS ---
<Corky Blanco - Last Filed: 03/10/18 15:08> Provider - Provider Date of Admission: 03/09/18 14:44 Attending physician: Naima Dumont MD Primary care physician: Trever Lemos MD Consults: Neurology: Dr. Gonzalez Time Spent in preparation of Discharge (in minutes): 40 Diagnosis - Discharge Diagnosis (1) Diabetes mellitus type 2 in obese Status: Chronic (2) Dizziness Status: Acute (3) HLD (hyperlipidemia) Status: Chronic (4) HTN (hypertension) Status: Chronic (5) Numbness Status: Chronic Hospital Course - Lab Results Lab Results: Most Recent Lab Values WBC 3.6 10^3/ul (4.5-11.0) L 03/10/18 05:40 RBC 4.44 10^6/uL (3.5-6.1) 03/10/18 05:40 Hgb 11.6 g/dL (12.0-16.0) L 03/10/18 05:40 Hct 36.8 % (36.0-48.0) 03/10/18 05:40 MCV 82.9 fl (80.0-105.0) 03/10/18 05:40 MCH 26.1 pg (25.0-35.0) 03/10/18 05:40 MCHC 31.5 g/dl (31.0-37.0) 03/10/18 05:40 RDW 12.5 % (11.5-14.5) 03/10/18 05:40 Plt Count 252 10^3/uL (120.0-450.0) 03/10/18 05:40 MPV 9.2 fl (7.0-11.0) 03/10/18 05:40 Gran % 29.0 % (50.0-68.0) L 03/10/18 05:40 Lymph % (Auto) 57.2 % (22.0-35.0) H 03/10/18 05:40 [place] % (Auto) 8.6 % (1.0-6.0) H 03/10/18 05:40 Eos % (Auto) 4.4 % (1.5-5.0) 03/10/18 05:40 Baso % (Auto) 0.8 % (0.0-3.0) 03/10/18 05:40 Gran # 1.04 (1.4-6.5) L 03/10/18 05:40 Lymph # (Auto) 2.1 (1.2-3.4) 03/10/18 05:40 [place] # (Auto) 0.3 (0.1-0.6) 03/10/18 05:40 Eos # (Auto) 0.2 (0.0-0.7) 03/10/18 05:40 Baso # (Auto) 0.03 K/mm3 (0.0-2.0) 03/10/18 05:40 PT 10.2 SECONDS (9.4-12.5) 03/09/18 13:15 INR 0.89 (0.93-1.08) L 03/09/18 13:15 APTT 35.9 Seconds (25.1-36.5) 03/09/18 13:15 Sodium 143 mmol/L (132-148) 03/10/18 05:40 Potassium 4.3 mmol/L (3.6-5.0) 03/10/18 05:40 Chloride 105 mmol/L (98-107) 03/10/18 05:40 Carbon Dioxide 28 mmol/L (21-33) 03/10/18 05:40 Anion Gap 14 (10-20) 03/10/18 05:40 BUN 17 mg/dL (7-21) 03/10/18 05:40 Creatinine 0.8 mg/dl (0.7-1.2) 03/10/18 05:40 Est GFR ( Amer) > 60 03/10/18 05:40 Est GFR (Non-Af Amer) > 60 03/10/18 05:40 POC Glucose (mg/dL) 140 mg/dL (65-110) H 03/10/18 14:20 Random Glucose 101 mg/dL (70-110) 03/10/18 05:40 Hemoglobin A1c 6.1 % (4.2-6.5) 03/09/18 13:15 Calcium 9.4 mg/dL (8.4-10.5) 03/10/18 05:40 Total Bilirubin 0.2 mg/dL (0.2-1.3) 03/10/18 05:40 AST 34 U/L (14-36) 03/10/18 05:40 ALT 28 U/L (7-56) 03/10/18 05:40 Alkaline Phosphatase 42 U/L (38-126) 03/10/18 05:40 Troponin I < 0.01 ng/mL 03/10/18 01:05 Total Protein 6.8 g/dL (5.8-8.3) 03/10/18 05:40 Albumin 3.9 g/dL (3.0-4.8) 03/10/18 05:40 Globulin 2.9 gm/dL 03/10/18 05:40 Albumin/Globulin Ratio 1.3 (1.1-1.8) 03/10/18 05:40 Triglycerides 209 mg/dL (35-160) H 03/09/18 13:15 Cholesterol 170 mg/dL (130-200) 03/09/18 13:15 LDL Cholesterol Direct 80 mg/dL (0-129) 03/09/18 13:15 HDL Cholesterol 53 mg/dL (29-60) 03/09/18 13:15 Free T4 1.59 ng/dL (0.78-2.19) 03/10/18 06:30 TSH 3rd Generation 0.07 mIU/mL (0.46-4.68) L 03/10/18 06:30 Urine Color Yellow (YELLOW) 03/09/18 13:40 Urine Appearance Clear (CLEAR) 03/09/18 13:40 Urine pH 6.5 (4.7-8.0) 03/09/18 13:40 Ur Specific [place] <= 1.005 (1.005-1.035) 03/09/18 13:40 Urine Protein Negative mg/dL (<30 mg/dL) 03/09/18 13:40 Urine Glucose (UA) Negative mg/dL (NEGATIVE) 03/09/18 13:40 Urine Ketones Negative mg/dL (NEGATIVE) 03/09/18 13:40 Urine Blood Negative (NEGATIVE) 03/09/18 13:40 Urine Nitrate Negative (NEGATIVE) 03/09/18 13:40 Urine Bilirubin Negative (NEGATIVE) 03/09/18 13:40 Urine Urobilinogen 0.2 E.U./dL (<1 E.U./dL) 03/09/18 13:40 Ur Leukocyte Esterase Negative [place]/uL (NEGATIVE) 03/09/18 13:40 Urine HCG, Qual Negative (NEGATIVE) 03/09/18 13:40 Blood Type A POSITIVE 03/09/18 15:00 Blood Type Confirm A POSITIVE 03/09/18 17:00 Antibody Screen Negative 03/09/18 15:00 BBK History Checked No verified bt 03/09/18 15:00 - Hospital Course Hospital Course: Patient is a 53 year old female with past medical history of HLD, HTN, DM2, history of papillary thyroid cancer s/p thyroidectomy who presented to [facility] complaining of dizziness. Patient reported symptoms of facial and perioral numbness as well as potential syncopal episode vs. seizure like activity and chest discomfort. Patient was evaluated in the ED with Head CT which was negative for acute findings, head and neck MRA that was also unremarkable. EKG was preformed and showed normal sinus rhythm without ST segment elevations or depressions nor any T wave inversions. Patient was admitted for further work up of TIA vs. Seizure and chest pain. Neurology was consulted, troponin's were trended and patient was started on home medication. Patient indicated taking aspirin and statin prior to admission. Neurology evaluated the patient and ordered MRI of head showing no acute infarct or other abnormalities and deemed patient appropriate for outpatient follow up with echocardiogram. EEG was preformed and interpreted by neurology. Patient symptoms diminished and all but resolved after one night's admission. Patient had TSH drawn which showed low TSH of 0.03. Patient reported her home dose of levothyroxine was 175mcg every other day in alternation with a 200mcg dose. Patient was counseled on her synthroid medication and advised to take a lower dose and to follow up with her primary care physician. Discharge instructions, medication reconciliation, and appropriate follow up were discussed with patient. Patient reported she would not be taking the new prescribed dose of levothyroxine of 125mcg as her physician had instructed her to only take 175mcg a day. At time of discharge patient was medically stable and appropriate for discharge with outpatient follow up. - Date & Time of H&P Date of H&P: 03/09/18 Time of H&P: 15:49 Discharge Exam - Head Exam Head Exam: ATRAUMATIC, NORMAL INSPECTION, NORMOCEPHALIC - Eye Exam Eye Exam: EOMI, PERRL - Neck Exam Neck exam: Full Rom - Respiratory Exam Respiratory Exam: Clear to PA & Lateral, NORMAL BREATHING PATTERN. absent: Rales, Rhonchi, Wheezes - Cardiovascular Exam Cardiovascular Exam: REGULAR RHYTHM, +S1, +S2 - GI/Abdominal Exam GI & Abdominal Exam: Normal Bowel Sounds, Soft. absent: Tenderness - Extremities Exam Additional comments: anterior thighs bilateral with evidence of small lipomas measuring 1x1 cm, left forearm with lipoma measuring 1x1 cm - Neurological Exam Neurological exam: Alert, CN II-XII Intact, Normal Gait, Oriented x3 - Psychiatric Exam Psychiatric exam: Normal Affect, Normal Mood - Skin Skin Exam: Dry, Warm Discharge Plan - Discharge Medications Prescriptions: Levothyroxine [Synthroid] 125 mcg PO 0600 #30 tab - Follow Up Plan Condition: GOOD Disposition: HOME/ ROUTINE Additional Instructions: Follow up with your PMD with in 1 to 2 weeks of discharge Follow up with neurologist with in 1 to 2 weeks upon discharge Take medications as prescribed to you If you experience return or worsening of your presenting symptoms go to the nearest ED Referrals: Trever Lemos MD [Primary Care Provider] - <Naima Dumont - Last Filed: 03/10/18 15:38> Provider - Provider Date of Admission: 03/09/18 14:44 Attending physician: Naima Dumont MD Primary care physician: Trever Lemos MD Hospital Course - Lab Results Lab Results: Most Recent Lab Values WBC 3.6 10^3/ul (4.5-11.0) L 03/10/18 05:40 RBC 4.44 10^6/uL (3.5-6.1) 03/10/18 05:40 Hgb 11.6 g/dL (12.0-16.0) L 03/10/18 05:40 Hct 36.8 % (36.0-48.0) 03/10/18 05:40 MCV 82.9 fl (80.0-105.0) 03/10/18 05:40 MCH 26.1 pg (25.0-35.0) 03/10/18 05:40 MCHC 31.5 g/dl (31.0-37.0) 03/10/18 05:40 RDW 12.5 % (11.5-14.5) 03/10/18 05:40 Plt Count 252 10^3/uL (120.0-450.0) 03/10/18 05:40 MPV 9.2 fl (7.0-11.0) 03/10/18 05:40 Gran % 29.0 % (50.0-68.0) L 03/10/18 05:40 Lymph % (Auto) 57.2 % (22.0-35.0) H 03/10/18 05:40 [place] % (Auto) 8.6 % (1.0-6.0) H 03/10/18 05:40 Eos % (Auto) 4.4 % (1.5-5.0) 03/10/18 05:40 Baso % (Auto) 0.8 % (0.0-3.0) 03/10/18 05:40 Gran # 1.04 (1.4-6.5) L 03/10/18 05:40 Lymph # (Auto) 2.1 (1.2-3.4) 03/10/18 05:40 [place] # (Auto) 0.3 (0.1-0.6) 03/10/18 05:40 Eos # (Auto) 0.2 (0.0-0.7) 03/10/18 05:40 Baso # (Auto) 0.03 K/mm3 (0.0-2.0) 03/10/18 05:40 PT 10.2 SECONDS (9.4-12.5) 03/09/18 13:15 INR 0.89 (0.93-1.08) L 03/09/18 13:15 APTT 35.9 Seconds (25.1-36.5) 03/09/18 13:15 Sodium 143 mmol/L (132-148) 03/10/18 05:40 Potassium 4.3 mmol/L (3.6-5.0) 03/10/18 05:40 Chloride 105 mmol/L (98-107) 03/10/18 05:40 Carbon Dioxide 28 mmol/L (21-33) 03/10/18 05:40 Anion Gap 14 (10-20) 03/10/18 05:40 BUN 17 mg/dL (7-21) 03/10/18 05:40 Creatinine 0.8 mg/dl (0.7-1.2) 03/10/18 05:40 Est GFR ( Amer) > 60 03/10/18 05:40 Est GFR (Non-Af Amer) > 60 03/10/18 05:40 POC Glucose (mg/dL) 140 mg/dL (65-110) H 03/10/18 14:20 Random Glucose 101 mg/dL (70-110) 03/10/18 05:40 Hemoglobin A1c 6.1 % (4.2-6.5) 03/09/18 13:15 Calcium 9.4 mg/dL (8.4-10.5) 03/10/18 05:40 Total Bilirubin 0.2 mg/dL (0.2-1.3) 03/10/18 05:40 AST 34 U/L (14-36) 03/10/18 05:40 ALT 28 U/L (7-56) 03/10/18 05:40 Alkaline Phosphatase 42 U/L (38-126) 03/10/18 05:40 Troponin I < 0.01 ng/mL 03/10/18 01:05 Total Protein 6.8 g/dL (5.8-8.3) 03/10/18 05:40 Albumin 3.9 g/dL (3.0-4.8) 03/10/18 05:40 Globulin 2.9 gm/dL 03/10/18 05:40 Albumin/Globulin Ratio 1.3 (1.1-1.8) 03/10/18 05:40 Triglycerides 209 mg/dL (35-160) H 03/09/18 13:15 Cholesterol 170 mg/dL (130-200) 03/09/18 13:15 LDL Cholesterol Direct 80 mg/dL (0-129) 03/09/18 13:15 HDL Cholesterol 53 mg/dL (29-60) 03/09/18 13:15 Free T4 1.59 ng/dL (0.78-2.19) 03/10/18 06:30 TSH 3rd Generation 0.07 mIU/mL (0.46-4.68) L 03/10/18 06:30 Urine Color Yellow (YELLOW) 03/09/18 13:40 Urine Appearance Clear (CLEAR) 03/09/18 13:40 Urine pH 6.5 (4.7-8.0) 03/09/18 13:40 Ur Specific [place] <= 1.005 (1.005-1.035) 03/09/18 13:40 Urine Protein Negative mg/dL (<30 mg/dL) 03/09/18 13:40 Urine Glucose (UA) Negative mg/dL (NEGATIVE) 03/09/18 13:40 Urine Ketones Negative mg/dL (NEGATIVE) 03/09/18 13:40 Urine Blood Negative (NEGATIVE) 03/09/18 13:40 Urine Nitrate Negative (NEGATIVE) 03/09/18 13:40 Urine Bilirubin Negative (NEGATIVE) 03/09/18 13:40 Urine Urobilinogen 0.2 E.U./dL (<1 E.U./dL) 03/09/18 13:40 Ur Leukocyte Esterase Negative [place]/uL (NEGATIVE) 03/09/18 13:40 Urine HCG, Qual Negative (NEGATIVE) 03/09/18 13:40 Blood Type A POSITIVE 03/09/18 15:00 Blood Type Confirm A POSITIVE 03/09/18 17:00 Antibody Screen Negative 03/09/18 15:00 BBK History Checked No verified bt 03/09/18 15:00 Attending/Attestation - Attestation I have personally seen and examined this patient.: Yes I have fully participated in the care of the patient.: Yes I have reviewed all pertinent clinical information, including history, physical exam and plan: Yes Notes (Text): 03/10/18 15:34 53 year old female with past medical history of hypertension, diabetes, dyslipidemia and papillary thyroid cancer s/p thyroidectomy who presented with complaint of chest pain, upper extremity numbness and possible syncopal vs seizure episode at home. She was admitted for possible TIA vs seizure. CT head and CTA head/neck were negative for acute findings. MRI brain was done today which was negative as well. Patient was seen by neurology with no further recommendations. EEG and echocardiogram were done with pending reports. Serial cardiac enzymes were negative and ACS was ruled out. Patient's symptoms overall improved. She is discharged home to follow up with her pmd. Will call with echo and EEG results. TSH was low and synthroid dose was adjusted. Recommended to repeat TFTs in 4-6 weeks. Naima Dumont MD Hospitalist.
[2018-03-10 17:04] VITALS: PULSE 74
[2018-03-10 17:08] VITALS: O2SAT 98
[2018-03-11] MEDS ORDERED: Levothyroxine 175 MCG TAB PO SCH (06:00)
--- NOTE | 2018-03-11 19:34 | CARD ---
APPROVED REPORT EXAM: Two-dimensional and M-mode echocardiogram with Doppler and color Doppler. INDICATION 2D DIMENSIONS RVDd2.9 (2.9-3.5cm)IVSd1.0 (0.7-1.1cm) LVDd4.5 (3.9-5.9cm)PWd1.1 (0.7-1.1cm) LVDs2.9 (2.5-4.0cm)FS (%) 35.6 % LVEF (%)65.2 (>50%) M-Mode DIMENSIONS Left Atrium (MM)3.70 (2.5-4.0cm)Aortic Root3.20 (2.2-3.7cm) Aortic Cusp Exc.2.00 (1.5-2.0cm) Aortic Valve AoV Peak Lbuuvawz606.0cm/Hung Peak GR.17mmHgAI P 1/2 [id number] Mitral Valve MV E Bsrwypit60.1cm/sMV A Oylvzeqg54.1cm/sE/A ratio0.9 TDI Lateral E' Peak V10.30cm/sMedial E' Peak V6.14cm/sE/Lateral E'6.7 E/Medial E'11.3 Tricuspid Valve TR Peak [id number]/sRAP [id number] Peak Gr.32mmHg [id number] LEFT VENTRICLE The left ventricle is normal size. There is normal left ventricular wall thickness. Proximal septal thickening is noted. The left ventricular function is normal.EF-60-65% There is normal LV segmental wall motion. The left ventricular diastolic function is normal. No left ventricle thrombus noted on this study. There is no ventricular septal defect visualized. There is no left ventricular aneurysm. There is no mass noted in the left ventricle. RIGHT VENTRICLE The right ventricle is normal size. There is normal right ventricular wall thickness. The right ventricular systolic function is normal. ATRIA The left atrium size is normal. The right atrium size is normal. The interatrial septum is intact with no evidence for an atrial septal defect. AORTIC VALVE The aortic valve is thickened but opens well. The aortic valve is mildly sclerotic. There is mild to moderate aortic regurgitation. There is no aortic valvular stenosis. There is no aortic valvular vegetation. MITRAL VALVE The mitral valve is thickened but opens well. Mitral regurgitation is trace. There is no mitral valve stenosis. There is no evidence of mitral valve prolapse. TRICUSPID VALVE The tricuspid valve is normal in structure. There is mild tricuspid regurgitation.RVSP-42 mmof hg. There is no tricuspid valve stenosis. There is no tricuspid valve prolapse or vegetation. PULMONIC VALVE The pulmonary valve is normal in structure. There is no pulmonic valvular regurgitation. There is no pulmonic valvular stenosis. GREAT VESSELS The aortic root is normal in size. The ascending aorta is normal in size. The pulmonary artery is normal. The IVC is normal in size and collapses >50% with inspiration. PERICARDIAL EFFUSION There is no pleural effusion. There is no pericardial effusion. <Conclusion> The left ventricle is normal size. There is normal left ventricular wall thickness. Proximal septal thickening is noted. The left ventricular function is normal.EF-60-65% There is mild to moderate aortic regurgitation. Mitral regurgitation is trace. There is mild tricuspid regurgitation.RVSP-42 mmof hg. The IVC is normal in size and collapses >50% with inspiration. There is no pericardial effusion. No thrombus or vegetation noted. F/u echo in 1-2 year is recommended to monitor AR.
== END 2018-03-10 17:01 | disposition home or self-care (01) ==
LOC: ED 12:30 → ERH 14:44 → 2RNO 17:25
PROVIDERS: ADMIT Internal Medicine; ATTEND Internal Medicine
DX: R42 Dizziness and giddiness (principal); R07.89 Other chest pain; R20.0 Anesthesia of skin; E66.9 Obesity, unspecified; R55 Syncope and collapse; I10 Essential (primary) hypertension; E11.40 Type 2 diabetes mellitus with diabetic neuropathy, unspecified; E78.5 Hyperlipidemia, unspecified; Z79.82 Long term (current) use of aspirin; Z79.84 Long term (current) use of oral hypoglycemic drugs; Z88.0 Allergy status to penicillin; Z85.850 Personal history of malignant neoplasm of thyroid; Z68.38 Body mass index [BMI] 38.0-38.9, adult
CPT/HCPCS: 36415; 70450; 70496; 70498; 70551; 71045; 80053; 80061; 81003; 82948; 83036; 84439; 84443; 84484; 84703; 85025; 85610; 85730; 86850; 86900; 93005; 93306; 95812; 99285; G0378; J7040; Q9967